=== PATIENT | female | born 1945 | race Caucasian/White ===

== ENCOUNTER → 2016-11-21 | Outpatient (CLI) | payer MEDICARE ==
--- NOTE | 2016-11-21 14:37 | REP ---
LEFT ANKLE SERIES: Four views of the left ankle are performed. There is no evidence of acute fracture or dislocation. Ankle mortise is anatomic. There is mild soft tissue swelling. Posteriorly, there are linear calcifications within the distal Achilles tendon with focal soft tissue swelling most compatible with calcific tendinitis or old tendon tear. There is mild inferior calcaneal spurring with mild calcification in the plantar soft tissues, either in the plantar tendon or adjacent fascia. IMPRESSION: Linear calcifications with focal soft tissue swelling distal Achilles tendon most compatible with calcific tendinitis or old Achilles tendon tear. Mild inferior calcaneal spurring with mild linear calcification in the plantar tendon or fascia. Signed by Enmanuel Martin MD 11/22/2016 08:42 A
--- NOTE | 2016-11-21 14:40 | REP ---
LEFT CALCANEUS: Two views of the left calcaneus are performed. There is focal soft tissue swelling with linear calcification in the distal Achilles tendon compatible with calcific tendinitis or old tendon tear. Mild inferior calcaneal spurring is present as well as linear calcifications in the plantar tendon or adjacent fascia. IMPRESSION: Linear calcifications with focal soft tissue swelling distal Achilles tendon, most compatible with calcific tendonitis or old tendon tear. Mild inferior calcaneal spurring and mild calcifications in the plantar tendon or fascia. Signed by Enmanuel Martin MD 11/22/2016 08:42 A
== END ==
LOC: M WUC 12:08
PROVIDERS: ATTEND Physician Assistant
DX: M25.572 Pain in left ankle and joints of left foot (principal); M77.32 Calcaneal spur, left foot

== ENCOUNTER → 2020-12-28 | Outpatient (REF) | payer MEDICARE | LOC: M WUC 15:29 | PROVIDERS: ATTEND Physician Assistant | DX: N39.0 Urinary tract infection, site not specified (principal) ==

== ENCOUNTER 2022-12-04 16:18 | Emergency (ER) | payer MEDICARE ==
[~2022-12-04] VITALS: Ht 162.6 cm; Wt 77.4 kg
[2022-12-04 16:19] VITALS: TEMP 98.2
[2022-12-04] MEDS ORDERED: AMLO1TAB24 PO (16:42)
[2022-12-04] MEDS ORDERED: ATOR1TAB21 PO (16:42)
[2022-12-04 17:19] LABS: BASO % 0.5 % (0.0-1.0); EOS % 0.5 % (0.0-3.0); HEMATOCRIT 40.1 % (36.0-47.0); HEMOGLOBIN 13.6 g/dl (12.0-15.5); LYMPH # 1.4 10^3/uL (1.5-5.0); LYMPH % 22.7 % (24.0-44.0); MEAN CORPUSCULAR HEMOGLOBIN 31.3 pg (27.0-33.0); MEAN CORPUSCULAR HGB CONC 33.9 g/dl (32.0-36.5); MEAN CORPUSCULAR VOLUME 92.4 fl (80.0-96.0); MONO # 0.5 10^3/uL (0.0-0.8); MONO % 8.5 % (2.0-8.0); NEUTROPHILS % 67.6 % (36.0-66.0); PLATELET COUNT, AUTOMATED 209 10^3/uL (150-450); RED BLOOD COUNT 4.34 10^6/uL (4.00-5.40)
[2022-12-04 17:41] LABS: CK-MB VALUE MASS 1.5 NG/ML (<3.6); LIPASE 40 U/L (12-53)
[2022-12-04 17:43] LABS: ALKALINE PHOSPHATASE 86 U/L (46-116); ALT/SGPT 16 U/L (7.0-40); AST/SGOT 14 U/L (<34); BILIRUBIN,DIRECT 0.2 MG/DL (<0.4); BILIRUBIN,TOTAL 0.7 MG/DL (0.3-1.2); BLOOD UREA NITROGEN 16 MG/DL (9-23); CALCIUM LEVEL 9.3 MG/DL (8.3-10.6); CARBON DIOXIDE LEVEL 26 MMOL/L (20-31); CHLORIDE LEVEL 106 MMOL/L (98-107); CPK CREATINE PHOSPHOKINASE 90 U/L (34-145); CREATININE FOR GFR 0.79 MG/DL (0.55-1.30); GLOMERULAR FILTRATION RATE > 60.0 (>39); GLUCOSE, FASTING 110 MG/DL (74-106); MB/CK RELATIVE INDEX 1.66 (< OR =4); POTASSIUM SERUM 4.3 MMOL/L (3.5-5.1); SODIUM LEVEL 139 MMOL/L (136-145); TOTAL PROTEIN 7.1 G/DL (5.7-8.2)
[2022-12-04 18:28] LABS: CK-MB VALUE MASS 1.8 NG/ML (<3.6)
[2022-12-04 18:30] LABS: MB/CK RELATIVE INDEX 2.09 (< OR =4)
[2022-12-04 22:01] VITALS: BP 145/65
[2022-12-04 22:03] VITALS: O2SAT 96
== END 2022-12-04 22:27 | disposition home or self-care (01) ==
LOC: M ED 16:18
DX: R55 Syncope and collapse (principal); I10 Essential (primary) hypertension; E78.5 Hyperlipidemia, unspecified